=== PATIENT | male | born 1970 | race Caucasian/White ===

== ENCOUNTER 2016-08-01 04:46 | Emergency (ER) | payer OTHER, BC ==
[2016-08-01 03:02] LABS: BASOPHILS 0.3 %; BASOPHILS ABSOLUTE 0.02 10/3/uL (0.0-0.16); EOSINOPHILS ABSOLUTE 0.21 10/3/uL (0.0-0.53); HEMATOCRIT 46.6 % (40.0-51.0); HEMOGLOBIN 16.1 g/dL (13.6-17.8); IMMATURE GRANULOCYTES 0.1 %; IMMATURE GRANULOCYTES ABSOLUTE 0.01 10/3/uL (0.0-0.11); LYMPHOCYTES 34.7 %; LYMPHOCYTES ABSOLUTE 2.41 10/3/uL (0.67-4.30); MEAN CORPUS HGB CONC 34.5 g/dL (32.0-36.0); MEAN CORPUSCULAR HEMOGLOB 31.4 pg (26.0-34.0); MEAN CORPUSCULAR VOLUME 90.8 fL (80-100); MEAN PLATELET VOLUME 10.9 fL (9.2-13.0); MONOCYTES 7.9 %; MONOCYTES ABSOLUTE 0.55 10/3/uL (0.21-1.20); NEUTROPHILS ABSOLUTE 3.74 10/3/uL (2.02-8.40); PLATELET COUNT 272 10/3/uL (150-400); RBC DISTRIBUTION WIDTH 12.4 % (12.0-16.0); RED CELL COUNT 5.13 10/6/uL (4.7-6.1)
[2016-08-01 03:04] LABS: ER CBC TAT 0 Hrs 07 Mins; MANUAL DIFF NO %; WHITE BLOOD CELLS 6.9 10/3/uL (4.5-10.5)
[2016-08-01 03:15] LABS: BUN (BLOOD UREA NITROGEN) 14 MG/DL (6-23); CALCIUM, SERUM 8.2 MG/DL (8.5-10.4); CHLORIDE, SERUM 106 MMOL/L (96-112); CO2 (CARBON DIOXIDE) 27 MMOL/L (24-34); CREATININE 1.24 MG/DL (0.70-1.30); GFR AFRICAN AMERICAN 81 ML/MIN (>=60); GFR NON AFRICAN AMERICAN 70 ML/MIN (>=60); POTASSIUM, SERUM 3.9 MMOL/L (3.5-5.3); SODIUM, SERUM 144 MMOL/L (135-148)
[2016-08-01 03:16] LABS: GLUCOSE, SERUM 114 MG/DL (60-99)
[2016-08-01 03:50] LABS: ALBUMIN 4.2 G/DL (3.5-5.0); DIRECT BILIRUBIN 0.1 MG/DL (0.0-0.4); SGOT(AST) 20 U/L (5-40); SGPT(ALT) 33 U/L (5-65); TOTAL PROTEIN 7.8 G/DL (6.0-8.5)
[2016-08-01 03:51] LABS: ALKALINE PHOSPHATASE 96 U/L (45-117); INDIRECT BILIRUBIN(NOT ORDER) 0.6 MG/DL (0.1-0.9); TOTAL BILIRUBIN 0.7 MG/DL (0-1.2)
[~2016-08-01 04:46] MED LIST: NO HOME MEDS
[2016-08-01 05:01] LABS: ASCORBIC ACID (UR NOT ORDER) NEG (NEG); BILIRUBIN, URINE NEGATIVE (NEG); ER URINALYSIS TAT 0 Hrs 00 Mins; KETONE, URINE NEGATIVE (NEG); LEUKOCYTE ESTERASE(NOT OR NEG (NEG); NITRITE (URINE) NEG (NEG); WBC (NOT ORDERED) (RFLEX) 2 (0-5)
== END 2016-08-01 04:49 | disposition home or self-care (01) ==
LOC: ER 04:46
PROVIDERS: Emergency Medicine
DX: N13.2 Hydronephrosis with renal and ureteral calculous obstruction (principal); N21.0 Calculus in bladder; Z87.442 Personal history of urinary calculi
CPT/HCPCS: 74176; 80048; 80076; 81001; 83690; 85025; 99284

== ENCOUNTER 2016-10-05 06:45 | Emergency (ER) | payer OTHER, BC ==
[2016-10-05 06:41] LABS: BASOPHILS 0.1 %; BASOPHILS ABSOLUTE 0.01 10/3/uL (0.0-0.16); EOSINOPHILS 0.2 %; EOSINOPHILS ABSOLUTE 0.02 10/3/uL (0.0-0.53); ER CBC TAT 0 Hrs 05 Mins; HEMATOCRIT 46.2 % (40.0-51.0); HEMOGLOBIN 15.8 g/dL (13.6-17.8); IMMATURE GRANULOCYTES 0.3 %; IMMATURE GRANULOCYTES ABSOLUTE 0.04 10/3/uL (0.0-0.11); LYMPHOCYTES 15.1 %; LYMPHOCYTES ABSOLUTE 1.73 10/3/uL (0.67-4.30); MANUAL DIFF NO %; MEAN CORPUS HGB CONC 34.2 g/dL (32.0-36.0); MEAN CORPUSCULAR HEMOGLOB 31.3 pg (26.0-34.0); MEAN CORPUSCULAR VOLUME 91.5 fL (80-100); MEAN PLATELET VOLUME 11.4 fL (9.2-13.0); MONOCYTES ABSOLUTE 0.57 10/3/uL (0.21-1.20); NEUTROPHILS 79.3 %; NEUTROPHILS ABSOLUTE 9.09 10/3/uL (2.02-8.40); PLATELET COUNT 276 10/3/uL (150-400); RED CELL COUNT 5.05 10/6/uL (4.7-6.1); WHITE BLOOD CELLS 11.5 10/3/uL (4.5-10.5)
[2016-10-05 06:48] LABS: ASCORBIC ACID (UR NOT ORDER) NEG (NEG); BILIRUBIN, URINE NEGATIVE (NEG); ER URINALYSIS TAT 0 Hrs 00 Mins; KETONE, URINE NEGATIVE (NEG); LEUKOCYTE ESTERASE(NOT OR NEG (NEG); NITRITE (URINE) NEG (NEG); WBC (NOT ORDERED) (RFLEX) 6 (0-5)
[2016-10-05 06:52] LABS: BUN (BLOOD UREA NITROGEN) 16 MG/DL (6-23); CALCIUM, SERUM 8.9 MG/DL (8.5-10.4); CHLORIDE, SERUM 110 MMOL/L (96-112); CO2 (CARBON DIOXIDE) 29 MMOL/L (24-34); CREATININE 1.47 MG/DL (0.70-1.30); GFR AFRICAN AMERICAN 66 ML/MIN (>=60); GFR NON AFRICAN AMERICAN 57 ML/MIN (>=60); GLUCOSE, SERUM 116 MG/DL (60-99); POTASSIUM, SERUM 4.1 MMOL/L (3.5-5.3); SODIUM, SERUM 143 MMOL/L (135-148)
== END 2016-10-05 08:17 | disposition home or self-care (01) ==
LOC: ER 06:45
PROVIDERS: Specialist
DX: N20.1 Calculus of ureter (principal); Z87.442 Personal history of urinary calculi
CPT/HCPCS: 74176; 80048; 81001; 85025; 96374; 96375; 99284; J1170; J2405